=== PATIENT | female | born 1990 | race Caucasian/White ===

== ENCOUNTER 2023-09-30 01:02 | Emergency (ER) | payer BC, SELFPAY ==
[2023-09-30 01:05] VITALS: BP 135/90; PULSE 93; RESP 16; TEMP 36.6; O2SAT 97; BMI 31.8
--- NOTE | 2023-09-30 01:15 | ED.URI1 ---
HPI - URI/Sore Throat General Chief Complaint: Upper Respiratory Infection Stated Complaint: CHILLS BODY ACHES Time Seen by Provider: 09/30/23 01:03 Source: patient Limitations: no limitations History of Present Illness HPI Narrative: 33-year-old female presents for cough and congestion. 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 No known fever. No productive cough, etc. dry cough. Symptoms are continuous. Related Data Home Medications Medication Instructions Recorded Confirmed No Known Home Medications 09/30/23 09/30/23 Allergies Allergy/AdvReac Type Severity Reaction Status Date / Time amoxicillin Allergy Unknown Verified 09/30/23 01:09 Review of Systems ROS Narrative A ten point review of systems is negative except as noted above. PFSH PFSH Social History Smoking status: Current every day smoker Exam Narrative Exam Narrative: Nurses note and vital signs reviewed and patient is not hypoxic. General: The patient appears well and in no apparent distress. Patient is resting comfortably on cart. Skin: Warm, dry, no pallor noted. There is no rash noted. Head: Normocephalic, atraumatic Eye: Normal conjunctiva, no drainage Ears, Nose, Mouth, and Throat: oral mucosa is moist. Nares patent. Cardiovascular: Regular Rate and Rhythm Respiratory: Patient is in no distress, no accessory muscle use, lungs show very faint occasional rhonchi Back: non-tender GI: nontender Musculoskeletal: The patient has no evidence of calf tenderness, no pitting edema, symmetrical pulses noted bilaterally Neurological: A&O, normal speech Psychiatric: Cooperative Constitutional Vital Signs, click to edit/add: Last Vital Signs Temp 97.9 F 09/30/23 01:05 Pulse 93 H 09/30/23 01:05 Resp 16 09/30/23 01:05 BP 135/90 09/30/23 01:05 Pulse Ox 97 09/30/23 01:05 O2 Del Method Room Air 09/30/23 01:05 Course Vital Signs Vital signs: Vital Signs Temperature 97.9 F 09/30/23 01:05 Pulse Rate 93 H 09/30/23 01:05 Respiratory Rate 16 09/30/23 01:05 Blood Pressure 135/90 09/30/23 01:05 Pulse Oximetry 97 09/30/23 01:05 Oxygen Delivery Method Room Air 09/30/23 01:05 Temperature 97.9 F 09/30/23 01:05 Pulse Rate 93 H 09/30/23 01:05 Respiratory Rate 16 09/30/23 01:05 Blood Pressure 135/90 09/30/23 01:05 Pulse Oximetry 97 09/30/23 01:05 Oxygen Delivery Method Room Air 09/30/23 01:05 MDM - URI/Sore Throat MDM Narrative Medical decision making narrative: the patient has tested positive for Covid. Influenza is negative. She was given a note for work and was informed. Treatment diagnosis and follow-up were discussed with the patient. Differential Diagnosis Differential diagnosis: Likely upper respiratory infection, viral infection, influenza and other (Covid) Lab Data Attestation: I reviewed the patient's lab results. Labs: Lab Results 09/30/23 Range/Units 01:10 Influenza Type A Ag Negative Influenza Type B Ag Negative SARS-CoV-2 Ag (CV2AG) Positive A (NEGATIVE) Discharge Plan Discharge Chief Complaint: Upper Respiratory Infection Clinical Impression: COVID-19 Patient Disposition: Home, Self-Care Time of Disposition Decision: 01:40 Condition: Good Mode of Transportation: Private Vehicle Prescriptions / Home Meds: No Action No Known Home Medications Instructions: COVID-19 (Coronavirus Disease 2019) (ED), COVID-19: Slow the Coronavirus Spread (ED), Face Coverings (Masks) and COVID-19 (ED), How to Recover from COVID-19 at Home (ED) Stand Alone Forms: Portal Instructions Referrals: Taylor Urena NP [Primary Care Provider] - 1 week
--- NOTE | 2023-09-30 01:23 | PC.NURSE ---
Pt complains of cough, congestion, body aches and chills. Denies fever, n/v/d. Flu and covid swabs obtained and sent to lab.
[2023-09-30 01:29] LABS: Influenza Virus A Antigen Negative; Influenza Virus B Antigen Negative; Internal Control Within Normal Limits
[2023-09-30 01:30] LABS: SARS-CoV-2 Ag POSITIVE (NEGATIVE)
== END 2023-09-30 01:50 | disposition home or self-care (01) ==
PROVIDERS: Emergency Provider Emergency Medicine; PCP Nurse Practitioner
DX: U07.1 COVID-19 (principal); F17.210 Nicotine dependence, cigarettes, uncomplicated
CPT/HCPCS: 87804; 87811; 99283